=== PATIENT | male | born 1985 | race Caucasian/White ===

== ENCOUNTER 2018-01-16 16:12 | Emergency (ER) | payer BC ==
[2018-01-16] MEDS ORDERED: IBUPROFEN 600 MG TAB PO ONE (16:18)
[2018-01-16] MEDS ORDERED: OXYCODONE/APAP 5/325 TAB PO ONE (17:00)
[2018-01-16] MEDS ORDERED: PROPOFOL 200 MG/20 ML VIAL ONE (17:41)
[2018-01-16] MEDS ORDERED: fentaNYL 100 MCG/2 ML INJ ONE (17:41)
--- NOTE | 2018-01-16 17:42 | EDPHY ---
H & P Stated Complaint: fell while bouldering, left ankle injury - Personal History Current Tetanus/Diphtheria Vaccine: Yes Current Tetanus Diphtheria and Acellular Pertussis (TDAP): Yes Tetanus Vaccine Date: < 10 years - Medical/Surgical History Hx Asthma: No Hx Chronic Respiratory Disease: No Hx Diabetes: No Hx Cardiac Disease: No Hx Renal Disease: No Hx Cirrhosis: No Hx Alcoholism: No Hx HIV/AIDS: No Hx Splenectomy or Spleen Trauma: No Other PMH: asthma - Social History Smoking Status: Never smoked Time Seen by Provider: 01/16/18 16:52 HPI/ROS: Chief complaint: Left ankle pain History of present illness: This is a 33-year-old who male who presents to the emergency department for evaluation of a left ankle injury. Patient was boldering outside when he fell onto his ankle. He rolled it. He has noticed a deformity. He reports significant pain. He is unable to move it or bear weight. No report of open wounds. No abnormal coolness or paresthesias in the foot. No report of trauma to other parts of the body. Review of systems: A 10 point review of systems was obtained and other than described above was negative (Lul Valerio) - Physical Exam Exam: General Appearance: Alert and no distress. Eyes: Pupils equal and round no injection. Respiratory: Chest is non tender, lungs are clear to auscultation. Cardiovascular: Regular rate and rhythm. DP and PT pulses 2+ in the affected foot. Gastrointestinal: Abdomen is soft and non tender, no masses, bowel sounds normal. Musculoskeletal: Obvious deformity of the left ankle. Unable to move it. Tender to palpation. Skin: No rashes or lesions. Neurological: Sensation appears intact throughout the left ankle and foot. ( Lul Valerio) Constitutional: Initial Vital Signs Temperature (C) 98.2 F 01/16/18 16:15 Heart Rate 87 01/16/18 16:15 Respiratory Rate 20 01/16/18 16:15 Blood Pressure 135/72 H 01/16/18 16:15 O2 Sat (%) 96 01/16/18 16:15 O2 Delivery Mode [Post Room Air Procedure 2nd] O2 Delivery Mode [Post Non-Rebreather Mask Procedure 1st] O2 Delivery Mode [Procedural Non-Rebreather Mask 3rd] O2 Delivery Mode [Procedural Non-Rebreather Mask 2nd] O2 Delivery Mode [Procedural Non-Rebreather Mask 1st] O2 Delivery Mode [.Immediate Non-Rebreather Mask Pre-Procedure] O2 Delivery Mode Room Air O2 (L/minute) [Post Procedure 15 2nd] O2 (L/minute) [Post Procedure 15 1st] O2 (L/minute) [Procedural 3rd] 15 O2 (L/minute) [Procedural 2nd] 10 O2 (L/minute) [Procedural 1st] 10 O2 (L/minute) [.Immediate Pre- 10 Procedure] Allergies/Adverse Reactions: No Known Allergies Allergy (Unverified 01/16/18 16:14) Home Medications: Medication Instructions Recorded Cyclobenzaprine [Flexeril 10 MG 10 mg PO TID PRN #11 tab 01/16/18 (*)] Ondansetron Odt [Zofran Odt 4 mg 4 mg PO Q6 PRN #12 tab 01/16/18 (*)] Prilosec 01/16/18 oxyCODONE HCL/ACETAMINOPHEN 1 each PO Q4-6PRN PRN #20 tablet 01/16/18 [Percocet 5-325 mg Tablet] Medical Decision Making - Diagnostics Imaging: I viewed and interpreted images myself - Diagnostics Imaging Results: Imaging Impressions Ankle X-Ray 01/16/18 16:19 Impression: Acute displaced and angulated unstable bimalleolar fracture. Procedures: Procedure: Procedural sedation. Indication: Fracture reduction. A pre-sedation evaluation was completed on the patient just prior to the procedure. Patient is an appropriate candidate for procedural sedation with a normal 3-3-2 rule assessment and a Mallampati airway score of class 1. The risks of the sedation were discussed including but not limited to dysrhythmia, need for airway intervention or general anesthesia, disability, ; and verbal consent obtained. A timeout was observed and patient's identity confirmed. The patient was sedated with propofol and fentanyl. The patient was monitored with continuous pulse oximetry, capnography, and clinical research monitor. There were no complications and no significant hypoxemia. I remained at the bedside for the sedation. The total time I spent in the procedural sedation was 20 min. (Davide Mercado) 5:45 p.m. I assumed care this patient from Lul Valerio PA-C at this time. Patient injured his ankle wall boulder earlier today. He does have a trimalleolar fracture. BECKY Valerio has discussed this with the on-call orthopedist who is requested procedural sedation and closed reduction. He has also requested a 3 way splint placement and Re x-ray after this. I have examined the patient remains neurovascular intact at this time. He is currently being prepared for procedural sedation. Last intake of food was 2:30 p.m. Today, trail mix only. He has no known abnormal reactions to anesthesia. Proceed with closed reduction of the ankle with Dr. Mercado providing procedural sedation 6:25 p.m. Successful closed reduction of the left ankle trimalleolar fracture. No desaturations. No decompensation. His DP PT pulses are symmetric pre and postprocedure. He is waking up conversing appropriately. He says his ankle feels significantly better at this time. We will recontact Orthopedics for further recommendation. 7:10 p.m. Case discussed with orthopedic [facility]. She requested I contact Dr. Montiel 7:[address] Mercado has discussed the case with Dr. Montiel. Dr. Montiel has reviewed the x-ray. He requested the patient be discharged home. Strict nonweightbearing. Ice and elevation. Pain medication as needed per our prescription. He would like to see the patient in the office Thursday or Thursday. The patient will need surgical intervention. I discussed this with the patient and spouse at bedside. I have answered all the questions. He will be discharged home stable condition PROCEDURE: Closed reduction of ankle Consent: Verbal Location: Left ankle Anesthesia: Procedural sedation by Dr. Mercado Procedure: After time-out and good procedural sedation, CMS was checked left lower extremity with symmetric DP PT pulses. I used C-arm fluoroscopy and was able to apply traction counter traction. There was excellent improvement of the alignment of the medial malleolus, lateral malleolus and distal fibular shaft fracture. Pulses were symmetric postprocedure. Tolerated well. Complications: None Post-reduction film: Significant improvement with near anatomic alignment ( Pino Tadeo) ED Course/Re-evaluation: Patient is seen in conjunction with my secondary supervising physician Dr. Davide Mercado. Patient presents for a left ankle injury. He has a significant fracture. He does appear neurovascularly intact. Orthopedics has been consulted and requested a close reduction in the emergency room with splinting and follow-up post reduction films and then to be contacted after that is completed. This will be completed by Dr. Davide Mercado and physician telecom assistant Pino Rasheed. Care of patient is turned over to them at end of shift, 1800 hr. ( Lul Valerio) Differential Diagnosis: Included but not limited to contusion, sprain or strain, bony fracture, joint dislocation (Lul Valerio) - Data Points Medications Given: Discontinued Medications Fentanyl (Sublimaze) 100 mcg IVP EDNOW ONE Stop: 01/16/18 18:19 Last Admin: 01/16/18 18:26 Dose: 100 mcg Ibuprofen (Motrin) 600 mg PO EDNOW ONE Stop: 01/16/18 16:19 Last Admin: 01/16/18 16:21 Dose: 600 mg Oxycodone/Acetaminophen (Percocet 5/325) 2 tab PO EDNOW ONE Stop: 01/16/18 17:01 Last Admin: 01/16/18 17:04 Dose: 2 tab Propofol (Diprivan) 180 mg IVP EDNOW ONE Stop: 01/16/18 18:19 Last Admin: 01/16/18 18:25 Dose: 180 mg Departure - Departure Disposition: Home, Routine, Self-Care Clinical Impression: Trimalleolar fracture of left ankle Qualifiers: Encounter type: initial encounter Fracture type: closed Qualified Code(s): S82.852A - Displaced trimalleolar fracture of left lower leg, initial encounter for closed fracture Condition: Good Instructions: Ankle Fracture (DC), ORIF of an Ankle Fracture (DC), Oxycodone/ Acetaminophen (By mouth) Additional Instructions: 1. Strict nonweightbearing on the left lower extremity at all times 2. Medications as prescribed as needed 3. Contact orthopedic surgeon Dr. Montiel on Thursday morning to be seen on Thursday. 4. ED precautions as discussed Referrals: Ashwin Montiel MD [Medical Doctor] - As per Instructions Prescriptions: Cyclobenzaprine [Flexeril 10 MG (*)] 10 mg PO TID PRN #11 tab PRN Reason: Spasms Ondansetron Odt [Zofran Odt 4 mg (*)] 4 mg PO Q6 PRN #12 tab PRN Reason: Nausea/Vomiting, Use 1st oxyCODONE HCL/ACETAMINOPHEN [Percocet 5-325 mg Tablet] 1 each PO Q4-6PRN PRN # 20 tablet PRN Reason: Pain, Breakthrough
[2018-01-16 18:18] VITALS: RESP 16; TEMP 97.9
[2018-01-16] MEDS ORDERED: PROPOFOL 200 MG/20 ML VIAL IVP ONE (18:18)
[2018-01-16] MEDS ORDERED: fentaNYL 100 MCG/2 ML INJ IVP ONE (18:18)
[2018-01-16 18:47] VITALS: O2SAT 94
[2018-01-16] MEDS ORDERED: OXYCODONE/APAP 5/325MG PREPACK#4 BTL TAKEHOME ONE (19:21)
[2018-01-16 20:17] VITALS: BP 108/50; PULSE 66
--- NOTE | 2018-01-17 07:19 | GCON ---
[f rep st] CONSULTATION ORTHOPEDIC CONSULTATION DATE OF CONSULTATION: 01/16/2018 REFERRING PHYSICIAN: Davide Mercado MD CHIEF COMPLAINT: Left ankle injury. HISTORY OF PRESENT ILLNESS: This is a 33-year-old right-hand dominant male, who fell climbing today up in [place]. He describes bouldering, and without harness or rope and apparently lost his footing and fell approximately 10 feet. He notes that he did strike a ledge on the way down. He suffered obvious injury and trauma to the left lower extremity, was unable to bear weight at the scene. As a result, he presented to the [facility] ER, was found to have fracture and I was consulted as the on-call orthopedics surgeon. He denies any other injuries, specifically no LOC, neck or back pain, no other extremity pain. No numbness or tingling in the left lower extremity. PAST MEDICAL HISTORY: Hiatal hernia with reflux but no history of ulcers. PAST SURGICAL HISTORY: Deviated septum surgery in 2011. Lasik/PRK for the eyes in 2016. MEDICATIONS: Prilosec and Zantac. ALLERGIES: None. SOCIAL HISTORY: No tobacco or drug use. He drinks 1 beer or less per week. He is without any children and his accompanies him today in the ER. FAMILY HISTORY: Father, melanoma. Grandfather lung and/or pancreatic cancer. Mother has a history of bradycardia. REVIEW OF SYSTEMS: The patient notes that he also like his mother, has history of low physiologic heart rate at baseline. He has had occasional rectal blood that he attributes to hemorrhoids. Otherwise, 10-point review is negative for any other complaints, concerns, or history. PHYSICAL EXAM: VITAL SIGNS: He is afebrile. Blood pressure 118/48, heart rate 69, respiratory rate 14, and 96% on room air. GENERAL: NAD, cooperative, pleasant. HEENT: NC/AT, EOMI, PERRLA, ears and nares patent without discharge. Oropharynx clear. NECK: NTTP, firm, supple. Negative Lhermitte's and Spurling's. No LAD. No step-offs posteriorly. Trachea midline. MUSCULOSKELETAL: Left lower extremity is in a splint that is well molded to the patient. He is able to wiggle all toes without difficulty. No pain with passive stretch or active ROM of all toes. Light touch sensation intact over superficial peroneal, deep peroneal, and tibial nerves. He is warm and well perfused. Brisk capillary refill. Palpable dorsalis pedis pulse. SKIN: Please see dictation above. No other rashes or lesions noted. No tattoos. NEUROLOGIC: Nonfocal, no deficits noted. C5-T1 and L2 through S1 intact. DTRs are 1+ bilateral upper extremities. Deferred in the lower extremities. Clonus deferred as well. PSYCH: Alert and oriented x3. Appropriate mood and affect. RADIOGRAPHS: Plain films are notable for a fracture dislocation of the left ankle with trimalleolar fracture pattern. The patient underwent closed reduction by the ER physician and postreduction films show appropriate alignment on AP and lateral views. The fracture segments are still somewhat displaced. IMPRESSION: Closed left ankle trimalleolar fracture dislocation. PLAN: The patient's diagnoses and/or treatment options have been outlined for him today. At this point, he will remain strict nonweightbearing in his left lower extremity in his splint. Ice and elevation. Analgesics p.o. p.r.n. No smoking or NSAIDs. The patient understands his options including surgery acutely at [facility] versus discharge and followup with outpatient surgery and he has elected to proceed with outpatient surgery. He will notify me by calling my office if anything changes in his status, specifically if he develops any kind of numbness, tingling, or other neurologic or vascular deficits. I will see him early next week for 1st outpatient evaluation and surgical scheduling. All questions have been answered. He is very happy with the care he received. /[id number]/MODL MTDD
== END 2018-01-16 20:16 | disposition home or self-care (01) ==
PROC: 0QSKXZZ Reposition Left Fibula, External Approach (ICD-10-PCS; principal; 2018-01-16)
PROC: 0QSHXZZ Reposition Left Tibia, External Approach (ICD-10-PCS; principal; 2018-01-16)
DX: S82.852A Displaced trimalleolar fracture of left lower leg, initial encounter for closed fracture (principal); J45.909 Unspecified asthma, uncomplicated; W18.39XA Other fall on same level, initial encounter; Y92.89 Other specified places as the place of occurrence of the external cause; Y93.89 Activity, other specified
CPT/HCPCS: J2704; J3010